=== PATIENT | female | born 1965 | race Hispanic/Latino ===

== ENCOUNTER 2017-06-07 21:53 | Emergency (ER) | payer OTHER ==
[~2017-06-07] VITALS: Ht 157.5 cm; Wt 67.6 kg
[~2017-06-07 21:53] MED LIST: AMLODIPINE BESYL5 MG PO; CIPRO500 MG PO; CIPROFLOXACIN; COLESTID1 G PO; CRESTOR10 MG PO; DOXYCYCLINE HY100 MG PO; HYDROCHLOROTHIA25 MG PO; INDOMETHACIN75 MG PO; LEVEMIR100 UNIT/1 SC; LEVEMIR100 UNIT/1 SQ; LEVOXYL50 MCG PO; LISINOPRIL10 MG PO; LYRICA50 MG PO; NORTRIPTYLINE H10 MG PO; NOVOLOG100 UNITS1; NOVOLOG100 UNITS1 SC; OXYCODONE-ACET1 EAC1 PO; OXYCONTIN10 MG PO; PANTOPRAZOLE SO40 MG PO; PLAQUENIL200 MG PO; PROMETHAZINE HC25 M1 PO; REGLAN10 MG PO; VANCOMYCIN1 GM/250 M IV; Z.0.AMLODIPINE BESYL PO; Z.0.LANTUS100 UNIT/1 SC; Z.0.LISINOPRIL10 MG PO; ZETIA10 MG PO
[2017-06-07] MEDS ORDERED: INSULIN REGULAR, HUMAN 100 UNIT/1 ML 3ML VIAL SQ ONE (22:00)
[2017-06-07] MEDS ORDERED: PANTOPRAZOLE 40 MG 10ML VIAL IV STA (22:00)
[2017-06-07] MEDS ORDERED: SODIUM CHLORIDE 0.9% 1000ML 1,000 ML IV ONE (22:00)
[2017-06-07] MEDS ORDERED: NORCO 5-325 TA1 EACH PO (22:06)
[2017-06-07 22:53] LABS: BASOPHILS % 0.5 % (0.0-1.0); HEMATOCRIT 36.1 % (34.2-44.1); HEMOGLOBIN 13.3 g/dL (12.0-16.0); LYMPHOCYTES # (AUTO) 2.6 (1.0-3.2); LYMPHOCYTES % 33.7 % (18.0-39.1); MEAN CORPUSCULAR HEMOGLOBIN 29.4 pg (28-32); MEAN CORPUSCULAR HGB CONC 36.8 g/dL (31-35); MEAN CORPUSCULAR VOLUME 79.9 fL (81-99); MONOCYTES # (AUTO) 0.4 (0.2-0.8); MONOCYTES % 4.6 % (4.4-11.3); NEUTROPHILS # (AUTO) 4.7 (2.1-6.9); NEUTROPHILS % 60.9 % (38.7-80.0); PLATELET COUNT 275 x10e3/uL (140-360); RED BLOOD COUNT 4.52 x10e6/uL (3.6-5.1); RED CELL DISTRIBUTION WIDTH 11.5 % (11.7-14.4)
[2017-06-07 23:09] LABS: ALANINE AMINOTRANSFERASE 10 IU/L (0-55); ALBUMIN/GLOBULIN RATIO 1.1 (0.8-2.0); ALKALINE PHOSPHATASE 46 IU/L (40-150); AMYLASE 33 U/L (25-125); ANION GAP 17.5 mmol/L (8-16); BLOOD UREA NITROGEN 12 mg/dL (7-26); BUN/CREATININE RATIO 14 (6-25); CALCIUM 9.3 mg/dL (8.4-10.2); CARBON DIOXIDE 25 mmol/L (22-29); CHLORIDE 99 mmol/L (98-107); CREATINE KINASE 49 IU/L (29-168); CREATININE, SERUM 0.88 mg/dL (0.57-1.11); EST GLOMERULAR FILTRATION RATE > 60 ML/MIN (60-); LIPASE 45 U/L (8-78); POTASSIUM 3.5 mmol/L (3.5-5.1); SODIUM 138 mmol/L (136-145)
[2017-06-07 23:16] LABS: TROPONIN I < 0.001 ng/mL (0-0.300)
[2017-06-07 23:17] LABS: GLUCOSE 468 mg/dL (74-118)
[2017-06-07 23:31] LABS: AMPHETAMINES SCREEN,URINE NEGATIVE (NEGATIVE); BENZODIAZEPINES SCREEN,URINE NEGATIVE (NEGATIVE); PHENCYCLIDINE SCREEN,URINE NEGATIVE (NEGATIVE)
[2017-06-07 23:32] LABS: BILIRUBIN,URINE NEGATIVE (NEGATIVE); CLARITY,URINE CLEAR (CLEAR); COLOR,URINE YELLOW (YELLOW); KETONES,URINE NEGATIVE (NEGATIVE); LEUKOCYTE ESTERASE ,URINE NEGATIVE (NEGATIVE); NITRITE,URINE NEGATIVE (NEGATIVE); PROTEIN,URINE DIPSTICK NEGATIVE (NEGATIVE); URINE UROBILINOGEN 0.2 mg/dL (0.2 - 1)
[2017-06-07 23:51] LABS: BACTERIA,URINE FEW /HPF; RBC,URINE 0-5 /HPF (0-5)
[2017-06-07 23:52] LABS: EPITHELIAL CELLS,URINE FEW /LPF
[2017-06-08 00:20] VITALS: BP 164/95
[2017-06-08] MEDS ORDERED: PANTOPRAZOLE SO40 MG PO (00:20)
== END 2017-06-08 00:33 | disposition home or self-care (01) ==
LOC: ER 21:53
DX: K29.70 Gastritis, unspecified, without bleeding (principal); E10.65 Type 1 diabetes mellitus with hyperglycemia; Z79.4 Long term (current) use of insulin; I10 Essential (primary) hypertension; E10.42 Type 1 diabetes mellitus with diabetic polyneuropathy; M32.9 Systemic lupus erythematosus, unspecified
CPT/HCPCS: 36415; 80053; 80307; 81001; 82150; 82550; 82553; 82948; 83690; 84484; 85025; 87086; 93005; 99284; J7030

== ENCOUNTER 2018-02-17 16:34 | Emergency (ER) | payer OTHER ==
[~2018-02-17] VITALS: Ht 162.6 cm; Wt 60.8 kg
[~2018-02-17 16:34] MED LIST changes: +NORCO 5-325 TA1 EACH PO
[2018-02-17 17:35] LABS: BASOPHILS % 0.8 % (0.0-1.0); HEMATOCRIT 38.9 % (34.2-44.1); HEMOGLOBIN 14.1 g/dL (12.0-16.0); LYMPHOCYTES # (AUTO) 2.8 (1.0-3.2); LYMPHOCYTES % 52.7 % (18.0-39.1); MEAN CORPUSCULAR HEMOGLOBIN 29.8 pg (28-32); MEAN CORPUSCULAR HGB CONC 36.2 g/dL (31-35); MEAN CORPUSCULAR VOLUME 82.2 fL (81-99); MONOCYTES # (AUTO) 0.3 (0.2-0.8); NEUTROPHILS # (AUTO) 2.1 (2.1-6.9); NEUTROPHILS % 40.3 % (38.7-80.0); PLATELET COUNT 261 x10e3/uL (140-360); RED BLOOD COUNT 4.73 x10e6/uL (3.6-5.1); RED CELL DISTRIBUTION WIDTH 11.8 % (11.7-14.4)
[2018-02-17 17:39] LABS: BILIRUBIN,URINE NEGATIVE (NEGATIVE); CLARITY,URINE CLEAR (CLEAR); COLOR,URINE YELLOW (YELLOW); KETONES,URINE NEGATIVE (NEGATIVE); LEUKOCYTE ESTERASE ,URINE NEGATIVE (NEGATIVE); NITRITE,URINE NEGATIVE (NEGATIVE); PREGNANCY TEST, URINE NEGATIVE (NEGATIVE); PROTEIN,URINE DIPSTICK NEGATIVE (NEGATIVE); URINE UROBILINOGEN 0.2 mg/dL (0.2 - 1)
[2018-02-17 17:49] LABS: ALBUMIN/GLOBULIN RATIO 1.1 (0.8-2.0); ANION GAP 17.7 mmol/L (8-16); CALCIUM 9.1 mg/dL (8.4-10.2); POTASSIUM 3.7 mmol/L (3.5-5.1)
[2018-02-17 17:49] LABS: EPITHELIAL CELLS,URINE FEW /LPF
[2018-02-17] MEDS ORDERED: SODIUM CHLORIDE 0.9% 1000ML 1,000 ML IV STA (18:23)
[2018-02-17] MEDS ORDERED: SODIUM CHLORIDE 0.9% 1000ML 1,000 ML IV SCH (18:30)
[2018-02-17 19:01] LABS: AMYLASE 33 U/L (25-125); LIPASE 35 U/L (8-78)
[2018-02-17] MEDS ORDERED: INSULIN REGULAR, HUMAN 100 UNIT/1 ML 3ML VIAL IV ONE (19:15)
[2018-02-17] MEDS ORDERED: INSULIN REGULAR, HUMAN 100 UNIT/1 ML 3ML VIAL SQ ONE ×2 (19:15)
[2018-02-17] MEDS ORDERED: INSULIN REGULAR, HUMAN 100 UNIT/1 ML 3ML VIAL SQ SCH (19:45)
[2018-02-17 21:15] VITALS: BP 142/92
== END 2018-02-17 21:17 | disposition home or self-care (01) ==
LOC: ER 16:40
DX: E11.65 Type 2 diabetes mellitus with hyperglycemia (principal); I10 Essential (primary) hypertension; K04.7 Periapical abscess without sinus; M06.9 Rheumatoid arthritis, unspecified; G89.29 Other chronic pain
CPT/HCPCS: 36415; 80053; 81001; 81025; 82150; 83690; 85025; 93005; 99284

== ENCOUNTER 2019-02-07 19:15 | Emergency (ER) | payer BC, OTHER ==
[~2019-02-07] VITALS: Ht 162.6 cm; Wt 67.6 kg
[~2019-02-07 19:15] MED LIST changes: +CRESTOR20 MG PO; +MORPHINE SULFAT15 M1 PO; +NOVOLIN R100 UNIT/1 SC
--- OUTSIDE RECORDS SUMMARY | 2019-02-07 19:19 | XMS REPORT | Clinical Summary ---
Author Author [facility] Organization [facility] Address Unknown Phone Unavailable Care Team Providers Care Stone Rigger Name Role Phone Domenico Maynard MD PCP Allergies Comments Active Allergy Reactions Severity Noted Date Iodine 08/26/2016 Latex Swelling 06/30/2016 Medications End Date Status Medication Sig Dispensed Refills Start Date Active pregabalin (LYRICA) 100 Take 100 mg 0 MG capsule by mouth every 8 (eight) hours. Active oxyCODone-acetaminophen TK 1 T PO Q 4 0 (PERCOCET) 10-325 mg per H PRN P 7 tablet Active lisinopril Take 40 mg by 0 (PRINIVIL,ZESTRIL) 40 mg mouth daily. tablet Active Problems Problem Noted Date Hyperglycemia 06/30/2016 Diabetes 06/30/2016 Gastroparesis 06/30/2016 Lupus 06/30/2016 Social History Date Tobacco Use Types Packs/Day Years Used Never Smoker Drinks/Week oz/Week Comments Alcohol Use No Sex Assigned at Date Recorded Not on file Industry Job Start Date Occupation Not on file Not on file Not on file Travel End Travel History Travel Start No recent travel history available. Last Filed Vital Signs Not on file Plan of Treatment Health Maintenance Due Date Last Done Comments DIABETIC RETINAL EYE EXAM 1967 DIABETIC FOOT EXAM 1977 URINE MICROALBUMIN 1977 CERVICAL CANCER SCREENING 1988 BREAST CANCER SCREENING 2017 COLONOSCOPY SCREENING 2017 SHINGLES VACCINES (#1) 2017 INFLUENZA VACCINE 12/24/2018 Results Not on fileafter 02/06/2018 Insurance Type Payer Benefit Subscriber ID Effective Phone Address Plan / Dates Group HMO CIGNA CIGNA OPEN xxxxxxxxx 2017-P ACCESS/NET resent WORK Advance Directives For more information, please contact: [phone] Patient Optometric Technologist Explanation Type Date Recorded Advance Directives, Living Will and Medical Power of Stock Grader
--- OUTSIDE RECORDS SUMMARY | 2019-02-07 19:19 | XMS REPORT | Clinical Summary ---
Author Author [facility] Address Unknown Phone Unavailable Care Team Providers Care Rn Correctional Name Role Phone Marcelle Rivers MD PCP Unavailable Allergies Comments Active Allergy Reactions Severity Noted Date Latex Swelling 02/13/2015 Medications End Date Status Medication Sig Dispensed Refills Start Date Active atorvastatin (LIPITOR) 20 Take 20 mg by 0 MG tablet mouth. Active amlodipine-valsartan Take 1 tablet 0 (EXFORGE) 5-320 mg per by mouth. tablet Active levothyroxine (SYNTHROID, Take 25 mcg 0 LEVOTHROID) 25 MCG tablet by mouth. 5 Active insulin aspart (NOVOLOG) Inject 20 0 100 unit/mL injection units three 5 times a day before meals.. Active CONTOUR TEST STRIPS Strp 0 5 Active insulin detemir (LEVEMIR) Inject 55 10 mL 0 100 unit/mL injection Units 5 subcutaneousl y 2 (two) times daily Inject 45 units in the mornings and 50 units at bedtime. Active Problems Problem Noted Date Gastroparesis due to DM 02/15/2015 Diabetic ketoacidosis without coma associated with diabetes mellitus due to 02/13/2015 underlying condition Social History Date Tobacco Use Types Packs/Day Years Used Never Smoker Alcohol Use Drinks/Week oz/Week Comments No Sex Assigned at Date Recorded Not on file Industry Job Start Date Occupation Not on file Not on file Not on file Travel End Travel History Travel Start No recent travel history available. Last Filed Vital Signs Not on file Plan of Treatment Not on file Results Not on fileafter 02/06/2018 Insurance Payer Benefit Subscriber ID Type Phone Address Plan / Group HUMANA - [employer] CARE HUMANA HMO xxxxxxxxx HMO/POS POS Advance Directives For more information, please contact: [id number] [place] [address] Date Inactivated Comments Code Status Date Activated 02/15/2015 4:36 PM Full Code 02/13/2015 3:42 PM This code status was determined by: Patient
--- OUTSIDE RECORDS SUMMARY | 2019-02-07 19:19 | XMS REPORT | Continuity of Care Document ---
Author Author [employer] Organization [employer] Address Unknown Phone Unavailable Care Team Providers Care Host Name Role Phone [employer] Information [employer] Unavailable Unavailable Problems Problem Status Onset Date Classification Date Reported Comments Source Postoperative cellulitis of surgical wound Active 04/02/2014 Problem 08/28/2018 [facility] Ingrown toenail Active Problem 04/10/2018 [facility] Medications Medication Details Route Status Patient Instructions Ordering Provider Order Date Source Ceftin 1 tablet Orally Active 500 MG Orally every 12 hrs Rob 04/08/2018 [facility] Ezetimibe (Zetia) 10 Mg Tablet, 10 Mg Oral Daily Active 06/07/2017 [facility] Hydrochlorothiazide 25 Mg Tablet, 25 Mg Oral Daily Active 06/07/2017 [facility] Nortriptyline Hcl 10 Mg Cap, 2 Cap Oral Bedtime Active 06/07/2017 [facility] Oxycodone Hcl (Oxycontin) 10 Mg Tab.er.12h, 1 Tab Oral Every 4 Hours for Neck Pain Active 06/07/2017 [facility] Oxycodone Hcl/Acetaminophen (Oxycodone-Acetaminophen 5-325) 1 Each Tablet, 10 Each Oral Active 06/07/2017 [facility] Rosuvastatin Calcium (Crestor) 10 Mg Tab, 40 Mg Oral Daily Active 06/07/2017 [facility] Hydrochlorothiazide 25 Mg Tablet, 25 Mg Oral Daily Active 06/07/2017 [facility] Nortriptyline Hcl 10 Mg Cap, 2 Cap Oral Bedtime Active 06/07/2017 [facility] Oxycodone Hcl/Acetaminophen (Oxycodone-Acetaminophen 5-325) 1 Each Tablet, 10 Each Oral Active 06/07/2017 [facility] Rosuvastatin Calcium (Crestor) 10 Mg Tab, 40 Mg Oral Daily Active 06/07/2017 [facility] Insulin Detemir (Levemir) 100 Unit/1 Ml Vial, 50 Units Sub-Q Before Breakfast Active 01/11/2016 [facility] Pregabalin (Lyrica) 50 Mg Cap, 100 Mg Oral Three Times A Day Active 01/11/2016 [facility] Insulin Detemir (Levemir) 100 Unit/1 Ml Vial, 50 Units Sub-Q Before Breakfast Active 01/11/2016 [facility] Pregabalin (Lyrica) 50 Mg Cap, 100 Mg Oral Three Times A Day Active 01/11/2016 [facility] Amlodipine Besylate 5 Mg Tablet, 5 Mg Oral Daily Active 04/02/2014 [facility] Levothyroxine Sodium (Levoxyl) 50 Mcg Tablet, 50 Mcg Oral Daily Active 08/17/2013 [facility] Insulin Aspart (Novolog) 100 Units/1 Ml Inj, Active 06/23/2013 [facility] Insulin Glargine,Hum.rec.anlog (Lantus) 100 Unit/1 Ml Vial, 50 Units Subcutaneously Bedtime Active 06/23/2013 [facility] Ciprofloxacin , Active 05/02/2011 [facility] Hydrocodone Bit/Acetaminophen ([place] 5-325 Tablet) 1 Each Tablet Three Times A Day for Pain Active [facility] Insulin Detemir (Levemir) 100 Unit/1 Ml Vial Before Supper Active [facility] Insulin Regular, Human (Novolin R) 100 Unit/1 Ml Vial Before Meals And At Bedtime Active [facility] Lisinopril 10 Mg Tablet Daily Active [facility] Morphine Sulfate (Morphine Sulfate Er) 15 Mg Tablet.er Twice A Day for Pain Active [facility] Pantoprazole Sodium (Protonix) 40 Mg Tablet.dr Daily Active [facility] Rosuvastatin Calcium (Crestor) 20 Mg Tablet Daily Active [facility] Hydrocodone Bit/Acetaminophen ([place] 5-325 Tablet) 1 Each Tablet Three Times A Day for Pain Active [facility] Insulin Detemir (Levemir) 100 Unit/1 Ml Vial Before Supper Active [facility] Lisinopril 10 Mg Tablet Daily Active [facility] Pantoprazole Sodium (Protonix) 40 Mg Tablet.dr Lindo Active [facility] Allergies, Adverse Reactions, Alerts Substance Category Reaction Severity Reaction type Status Date Reported Comments Source IV CONTRAST hives Intermediate Propensity to adverse reactions Active 06/16/2013 [facility] SEAFOOD SWELLING/WELPS Severe Allergy to Substance Active 04/02/2014 [facility] iodine IV IODINE, HIVES Unknown Allergy to Substance Active 08/28/2018 [facility] Iodinated Contrast- Oral and IV Dye HIVES Intermediate Allergy to Substance Active 08/28/2018 [facility] Latex RASH Unknown Allergy to Substance Active 08/28/2018 [facility] shellfish derived SWELLING Severe Allergy to Substance Active 08/28/2018 [facility] Immunizations No Data Provided for This Section Results Order Name Results Value Reference Range Date Interpretation Comments Source Capillary blood glucose measurement by glucometer (mass/volume) 205 70 - 120 08/28/2018 [facility] Lactic Acid Level 13.1 4.5 - 19.8 08/28/2018 [facility] Blood leukocytes automated count (number/volume) 5.55 4.8 - 10.8 08/28/2018 [facility] Blood erythrocytes automated count (number/volume) 4.42 3.6 - 5.1 08/28/2018 [facility] Blood hemoglobin measurement (moles/volume) 13.0 12.0 - 16.0 08/28/2018 [facility] Automated blood hematocrit (volume fraction) 36.4 34.2 - 44.1 08/28/2018 [facility] Automated erythrocyte mean corpuscular volume 82.4 81 - 99 08/28/2018 [facility] Automated erythrocyte mean corpuscular hemoglobin (mass per erythrocyte) 29.4 28 - 32 08/28/2018 [facility] Automated erythrocyte mean corpuscular hemoglobin concentration measurement (mass/volume) 35.7 31 - 35 08/28/2018 [facility] RDW BldCo-Rto 12.1 11.7 - 14.4 08/28/2018 [facility] Automated blood platelet count (count/volume) 262 140 - 360 08/28/2018 [facility] Automated blood segmented neutrophil count as percentage of total leukocytes 43.8 38.7 - 80.0 08/28/2018 [facility] Automated blood lymphocyte count as percentage ot total leukocytes 47.4 18.0 - 39.1 08/28/2018 [facility] Automated blood monocyte count as percentage of total leukocytes 5.6 4.4 - 11.3 08/28/2018 [facility] Automated blood eosinophil count as percentage of total leukocytes 2.3 0.0 - 6.0 08/28/2018 [facility] Automated blood basophil count as percentage of total leukocytes 0.4 0.0 - 1.0 08/28/2018 [facility] IM GRANULOCYTES % 0.5 0.0 - 1.0 08/28/2018 [facility] Automated blood neutrophil count 2.4 2.1 - 6.9 08/28/2018 [facility] Blood lymphocytes count (number/volume) 2.6 1.0 - 3.2 08/28/2018 [facility] Blood monocytes automated count (number/volume) 0.3 0.2 - 0.8 08/28/2018 [facility] Automated blood eosinophil count 0.1 0.0 - 0.4 08/28/2018 [facility] Automated blood basophil count (count/volume) 0.0 0.0 - 0.1 08/28/2018 [facility] Absolute Immature Granulocyte (auto 0.03 0 - 0.1 08/28/2018 [facility] Prothrombin time (PT) in platelet poor plasma by coagulation assay 12.4 11.9 - 14.5 08/28/2018 [facility] INR in Platelet poor plasma by Coagulation assay 0.88 08/28/2018 [facility] Activated partial thromboplastin time (aPTT) in platelet poor plasma bycoagulation assay 28.3 23.8 - 35.5 08/28/2018 [facility] Urine color determination YELLOW YELLOW 08/28/2018 [facility] Urine clarity SL CLOUDY CLEAR 08/28/2018 [facility] Specific gravity of Urine by Test strip 1.010 1.010 - 1.025 08/28/2018 [facility] Urine pH measurement by automated test strip 6 5 - 7 08/28/2018 [facility] Urine leukocyte esterase detection by dipstick NEGATIVE NEGATIVE 08/28/2018 [facility] Urine nitrite detection NEGATIVE NEGATIVE 08/28/2018 [facility] Urine protein measurement by test strip (mass/volume) NEGATIVE NEGATIVE 08/28/2018 [facility] Urine glucose detection 3+ NEGATIVE 08/28/2018 [facility] Urine ketones detection by automated test strip NEGATIVE NEGATIVE 08/28/2018 [facility] Urine urobilinogen measurement by test strip (mass/volume) 0.2 0.2 - 1 08/28/2018 [facility] Urine total bilirubin measurement (mass/volume) NEGATIVE NEGATIVE 08/28/2018 [facility] Urine erythrocytes detection NEGATIVE NEGATIVE 08/28/2018 [facility] Automated urine sediment leukocyte count by microscopy (number/high power field) NONE 0 - 5 08/28/2018 [facility] Erythrocytes detection in urine sediment by light microscopy NONE 0 - 5 08/28/2018 [facility] Bacteria detection in urine sediment by light microscopy NONE NONE 08/28/2018 [facility] Epithelial cells detection in urine sediment by light microscopy RARE NONE 08/28/2018 [facility] Serum or plasma sodium measurement (moles/volume) 133 136 - 145 08/28/2018 [facility] Serum or plasma potassium measurement (moles/volume) 3.7 3.5 - 5.1 08/28/2018 [facility] Serum or plasma chloride measurement (moles/volume) 97 98 - 107 08/28/2018 [facility] Serum or plasma carbon dioxide, total measurement (moles/volume) 25 22 - 29 08/28/2018 [facility] Serum or plasma anion gap 14.7 8 - 16 08/28/2018 [facility] Serum or plasma urea nitrogen measurement (mass/volume) 11 7 - 26 08/28/2018 [facility] Serum or plasma creatinine measurement (mass/volume) 0.85 0.57 - 1.11 08/28/2018 [facility] Serum or plasma urea nitrogen/creatinine mass ratio 13 6 - 25 08/28/2018 [facility] Estimated glomerular filtration rate (GFR) determination > 60 60 08/28/2018 [facility] Glucose measurement 470 74 - 118 08/28/2018 [facility] Serum or plasma calcium measurement (mass/volume) 9.3 8.4 - 10.2 08/28/2018 [facility] Serum or plasma magnesium measurement (mass/volume) 1.3 1.3 - 2.1 08/28/2018 [facility] Serum or plasma total bilirubin measurement (mass/volume) 0.4 0.2 - 1.2 08/28/2018 [facility] Aspartate Amino Transf (AST/SGOT) 12 5 - 34 08/28/2018 [facility] Serum or plasma alanine aminotransferase measurement (enzymatic activity/volume) 9 0 - 55 08/28/2018 [facility] Serum or plasma protein measurement (mass/volume) 7.5 6.5 - 8.1 08/28/2018 [facility] Serum or plasma albumin measurement (mass/volume) 3.7 3.5 - 5.0 08/28/2018 [facility] Plasma globulin measurement (mass/volume) 3.8 2.3 - 3.5 08/28/2018 [facility] Serum or plasma albumin/globulin mass ratio 1.0 0.8 - 2.0 08/28/2018 [facility] Serum or plasma alkaline phosphatase measurement (enzymatic activity/volume) 56 40 - 150 08/28/2018 [facility] Serum or plasma creatine kinase measurement (enzymatic activity/volume) 57 29 - 168 08/28/2018 [facility] Serum or plasma creatine kinase MB measurement (mass/volume) 1.40 0 - 5.0 08/28/2018 [facility] Troponin I measurement by highly sensitive enzyme immunoassay 0.005 0 - 0.300 08/28/2018 [facility] Serum or plasma amylase measurement (enzymatic activity/volume) 28 25 - 125 08/28/2018 [facility] Serum or plasma lipase measurement (enzymatic activity/volume) 22 8 - 78 08/28/2018 [facility] Automated blood basophil count (count/volume) Automated blood basophil count (count/volume) 0.0 0.0 - 0.1 02/17/2018 [facility] Automated blood basophil count as percentage of total leukocytes Automated blood basophil count as percentage of total leukocytes 0.8 0.0 - 1.0 02/17/2018 [facility] Automated blood eosinophil count Automated blood eosinophil count 0.0 0.0 - 0.4 02/17/2018 [facility] Automated blood eosinophil count as percentage of total leukocytes Automated blood eosinophil count as percentage of total leukocytes 0.0 0.0 - 6.0 02/17/2018 [facility] Automated blood hematocrit (volume fraction) Automated blood hematocrit (volume fraction) 38.9 34.2 - 44.1 02/17/2018 [facility] Automated blood lymphocyte count as percentage ot total leukocytes Automated blood lymphocyte count as percentage ot total leukocytes 52.7 18.0 - 39.1 02/17/2018 [facility] Automated blood monocyte count as percentage of total leukocytes Automated blood monocyte count as percentage of total leukocytes 6.0 4.4 - 11.3 02/17/2018 [facility] Automated blood neutrophil count Automated blood neutrophil count 2.1 2.1 - 6.9 02/17/2018 [facility] Automated blood platelet count (count/volume) Automated blood platelet count (count/volume) 261 140 - 360 02/17/2018 [facility] Automated blood segmented neutrophil count as percentage of total leukocytes Automated blood segmented neutrophil count as percentage of total leukocytes 40.3 38.7 - 80.0 02/17/2018 [facility] Automated erythrocyte mean corpuscular hemoglobin (mass per erythrocyte) Automated erythrocyte mean corpuscular hemoglobin (mass per erythrocyte) 29.8 28 - 32 02/17/2018 [facility] Automated erythrocyte mean corpuscular hemoglobin concentration measurement (mass/volume) Automated erythrocyte mean corpuscular hemoglobin concentration measurement (mass/volume) 36.2 31 - 35 02/17/2018 [facility] Automated erythrocyte mean corpuscular volume Automated erythrocyte mean corpuscular volume 82.2 81 - 99 02/17/2018 [facility] Blood erythrocytes automated count (number/volume) Blood erythrocytes automated count (number/volume) 4.73 3.6 - 5.1 02/17/2018 [facility] Blood hemoglobin measurement (moles/volume) Blood hemoglobin measurement (moles/volume) 14.1 12.0 - 16.0 02/17/2018 [facility] Blood leukocytes automated count (number/volume) Blood leukocytes automated count (number/volume) 5.31 4.8 - 10.8 02/17/2018 [facility] Blood lymphocytes count (number/volume) Blood lymphocytes count (number/volume) 2.8 1.0 - 3.2 02/17/2018 [facility] Blood monocytes automated count (number/volume) Blood monocytes automated count (number/volume) 0.3 0.2 - 0.8 02/17/2018 [facility] Estimated glomerular filtration rate (GFR) determination Estimated glomerular filtration rate (GFR) determination 59 60 02/17/2018 [facility] Glucose measurement Glucose measurement 571 74 - 118 02/17/2018 [facility] Plasma globulin measurement (mass/volume) Plasma globulin measurement (mass/volume) 3.7 2.3 - 3.5 02/17/2018 [facility] Serum or plasma alanine aminotransferase measurement (enzymatic activity/volume) Serum or plasma alanine aminotransferase measurement (enzymatic activity/volume) 19 0 - 55 02/17/2018 [facility] Serum or plasma albumin measurement (mass/volume) Serum or plasma albumin measurement (mass/volume) 4.0 3.5 - 5.0 02/17/2018 [facility] Serum or plasma albumin/globulin mass ratio Serum or plasma albumin/globulin mass ratio 1.1 0.8 - 2.0 02/17/2018 [facility] Serum or plasma alkaline phosphatase measurement (enzymatic activity/volume) Serum or plasma alkaline phosphatase measurement (enzymatic activity/volume) 57 40 - 150 02/17/2018 [facility] Serum or plasma amylase measurement (enzymatic activity/volume) Serum or plasma amylase measurement (enzymatic activity/volume) 33 25 - 125 02/17/2018 [facility] Serum or plasma anion gap Serum or plasma anion gap 17.7 8 - 16 02/17/2018 [facility] Serum or plasma calcium measurement (mass/volume) Serum or plasma calcium measurement (mass/volume) 9.1 8.4 - 10.2 02/17/2018 [facility] Serum or plasma carbon dioxide, total measurement (moles/volume) Serum or plasma carbon dioxide, total measurement (moles/volume) 27 22 - 29 02/17/2018 [facility] Serum or plasma chloride measurement (moles/volume) Serum or plasma chloride measurement (moles/volume) 94 98 - 107 02/17/2018 [facility] Serum or plasma creatinine measurement (mass/volume) Serum or plasma creatinine measurement (mass/volume) 1.00 0.57 - 1.11 02/17/2018 [facility] Serum or plasma lipase measurement (enzymatic activity/volume) Serum or plasma lipase measurement (enzymatic activity/volume) 35 8 - 78 02/17/2018 [facility] Serum or plasma potassium measurement (moles/volume) Serum or plasma potassium measurement (moles/volume) 3.7 3.5 - 5.1 02/17/2018 [facility] Serum or plasma protein measurement (mass/volume) Serum or plasma protein measurement (mass/volume) 7.7 6.5 - 8.1 02/17/2018 [facility] Serum or plasma sodium measurement (moles/volume) Serum or plasma sodium measurement (moles/volume) 135 136 - 145 02/17/2018 [facility] Serum or plasma total bilirubin measurement (mass/volume) Serum or plasma total bilirubin measurement (mass/volume) 0.7 0.2 - 1.2 02/17/2018 [facility] Serum or plasma urea nitrogen measurement (mass/volume) Serum or plasma urea nitrogen measurement (mass/volume) 6 7 - 26 02/17/2018 [facility] Serum or plasma urea nitrogen/creatinine mass ratio Serum or plasma urea nitrogen/creatinine mass ratio 6 6 - 25 02/17/2018 [facility] Red Cell Distribution Width 11.8 11.7 - 14.4 02/17/2018 [facility] IM GRANULOCYTES % 0.2 0.0 - 1.0 02/17/2018 [facility] Absolute Immature Granulocyte (auto 0.01 0 - 0.1 02/17/2018 [facility] Aspartate Amino Transf (AST/SGOT) 20 5 - 34 02/17/2018 [facility] Urine human chorionic gonadotropin (hCG) detection NEGATIVE NEGATIVE 02/17/2018 [facility] Automated urine sediment leukocyte count by microscopy (number/high power field) Automated urine sediment leukocyte count by microscopy (number/high power field) NONE 0 - 5 02/17/2018 [facility] Bacteria detection in urine sediment by light microscopy Bacteria detection in urine sediment by light microscopy NONE NONE 02/17/2018 [facility] Epithelial cells detection in urine sediment by light microscopy Epithelial cells detection in urine sediment by light microscopy FEW NONE 02/17/2018 [facility] Erythrocytes detection in urine sediment by light microscopy Erythrocytes detection in urine sediment by light microscopy NONE 0 - 5 02/17/2018 [facility] Specific gravity of Urine by Test strip Specific gravity of Urine by Test strip 1.005 1.010 - 1.025 02/17/2018 [facility] Urine clarity Urine clarity CLEAR CLEAR 02/17/2018 [facility] Urine color determination Urine color determination YELLOW YELLOW 02/17/2018 [facility] Urine erythrocytes detection Urine erythrocytes detection NEGATIVE NEGATIVE 02/17/2018 [facility] Urine glucose detection Urine glucose detection 3+ NEGATIVE 02/17/2018 [facility] Urine human chorionic gonadotropin (hCG) detection Urine human chorionic gonadotropin (hCG) detection NEGATIVE NEGATIVE 02/17/2018 [facility] Urine ketones detection by automated test strip Urine ketones detection by automated test strip NEGATIVE NEGATIVE 02/17/2018 [facility] Urine leukocyte esterase detection by dipstick Urine leukocyte esterase detection by dipstick NEGATIVE NEGATIVE 02/17/2018 [facility] Urine nitrite detection Urine nitrite detection NEGATIVE NEGATIVE 02/17/2018 [facility] Urine pH measurement by automated test strip Urine pH measurement by automated test strip 6 5 - 7 02/17/2018 [facility] Urine protein measurement by test strip (mass/volume) Urine protein measurement by test strip (mass/volume) NEGATIVE NEGATIVE 02/17/2018 [facility] Urine total bilirubin measurement (mass/volume) Urine total bilirubin measurement (mass/volume) NEGATIVE NEGATIVE 02/17/2018 [facility] Urine urobilinogen measurement by test strip (mass/volume) Urine urobilinogen measurement by test strip (mass/volume) 0.2 0.2 - 1 02/17/2018 [facility] Capillary blood glucose measurement by glucometer (mass/volume) Capillary blood glucose measurement by glucometer (mass/volume) 279 70 - 120 06/07/2017 [facility] Serum or plasma creatine kinase MB measurement (mass/volume) Serum or plasma creatine kinase MB measurement (mass/volume) 0.50 0.00 - 5.00 06/07/2017 [facility] Serum or plasma creatine kinase measurement (enzymatic activity/volume) Serum or plasma creatine kinase measurement (enzymatic activity/volume) 49 29 - 168 06/07/2017 [facility] Troponin I measurement by highly sensitive enzyme immunoassay Troponin I measurement by highly sensitive enzyme immunoassay <0.001 0 - 0.300 06/07/2017 [facility] Barbiturates screen, urine Barbiturates screen, urine NEGATIVE NEGATIVE 06/07/2017 [facility] Urine amphetamines detection by screen method > 1000 ng/mL Urine amphetamines detection by screen method > 1000 ng/mL NEGATIVE NEGATIVE 06/07/2017 [facility] Urine benzodiazepines detection by screening method Urine benzodiazepines detection by screening method NEGATIVE NEGATIVE 06/07/2017 [facility] Urine cannabinoids detection by screening method Urine cannabinoids detection by screening method NEGATIVE NEGATIVE 06/07/2017 [facility] Urine opiates screening test Urine opiates screening test POSITIVE NEGATIVE 06/07/2017 [facility] Urine phencyclidine detection by screening method Urine phencyclidine detection by screening method NEGATIVE NEGATIVE 06/07/2017 [facility] Urine Cocaine Screen NEGATIVE NEGATIVE 06/07/2017 [facility] Pathology Reports No Data Provided for This Section Diagnostic Reports No Data Provided for This Section Consultation Notes No Data Provided for This Section Discharge Summaries No Data Provided for This Section History and Physicals No Data Provided for This Section Vital Signs No Data Provided for This Section Encounters Location Location Details Encounter Type Encounter Number Reason For Visit Attending Provider ADM Date DC Date Status Source Departed Emergency Room [id number] RAYMOND LANIER MD 06/07/2017 06/08/2017 [facility] Departed Emergency Room [id number] DAMARIS WALTON MD 02/17/2018 02/17/2018 [facility] Departed Emergency Room [id number] KECIA MARIE MD 08/28/2018 08/28/2018 [facility] Procedures Procedure Code Date Perfomer Comments Source CT of abdomen and pelvis without contrast [id number] 08/28/2018 [facility] Assessment and Plan No Data Provided for This Section Plan of Care Plan of Care Date Source Discharge Date 08/28/18 3:45pm Disposition HOME, SELF-CARE Condition at Discharge Stable Instructions/Education Provided Dehydration - Adult Hyperglycemia Forms Provided Work/School Excuse Prescriptions See Medication Section Referrals [facility] Address: [address] [place] [address] Additional Instructions/Education follow up with pcp take meds as directed by pcp 08/28/2018 [facility] Discharge Date 02/17/18 9:17pm Disposition HOME, SELF-CARE Condition at Discharge Stable Instructions/Education Provided Hypertension Hyperglycemia Forms Provided Work/School Excuse Prescriptions See Medication Section Referrals [facility] Address: [address] [place] [address] Additional Instructions/Education FOLLOW UP WITH YOUR PRIMARY CARE DOCTOR WITHIN 2-4 DAYS TAKE MEDICATIONS PRESCRIBED, AND MONITOR YOUR BLOOD SUGAR DAILY. RETURN TO ER NEEDED, IF YOU START HAVING FEVER, WORSENING PAIN OR CHEST PAIN NEW ONSET. 02/17/2018 [facility] Social History Social History Date Source Social History Problem Response Recorded Date/Time Onset Date Status Hx Psychiatric Problems No 04/12/2014 11:20pm Not Applicable Not Applicable Hx Eating Disorder No 04/12/2014 11:20pm Not Applicable Not Applicable Hx Substance Use Disorder No 04/12/2014 11:20pm Not Applicable Not Applicable Hx Depression No 04/12/2014 11:20pm Not Applicable Not Applicable Hx Alcohol Use No 04/12/2014 11:20pm Not Applicable Not Applicable Hx Substance Use Treatment No 04/12/2014 11:20pm Not Applicable Not Applicable Hx Physical Abuse No 04/12/2014 11:20pm Not Applicable Not Applicable Smoking Status Start Date Stop Date Former smoker 08/28/2018 [facility] Family History No Data Provided for This Section Advance Directives Order Name Results Value Date Source Advance Directives Advance Directives Directive Response Recorded Date/Time Does the patient have an advance directive? No 11/18/14 11:20pm Do you have a Directive to Physician? No 08/28/18 12:13pm Do you have a Medical Power of Portfolio Assistant? No 08/28/18 12:13pm Do you have an out of hospital Do Not Resuscitate Order? No 08/28/18 12:13pm Do you have any special needs we should be aware of? No 08/28/18 12:13pm Do you have a support person here with you today? Yes 08/28/18 12:13pm Did patient receive Notice of Privacy Practices? Yes 08/28/18 12:13pm Did patient receive patient rights and responsibilities? Yes 08/28/18 12:13pm 08/28/2018 [facility] Advance Directives Advance Directives Directive Response Recorded Date/Time Does the patient have an advance directive? No 04/12/14 11:20pm If yes, is advance directive on file with [facility]? No 06/07/17 10:49pm If not on file with [facility] will patient provide a copy? No 04/03/14 12:30am 02/17/2018 [facility] Functional Status No Data Provided for This Section
[2019-02-07 20:00] LABS: BASOPHILS % 0.4 % (0.0-1.0); EOSINOPHILS # (AUTO) 0.1 (0.0-0.4); EOSINOPHILS % 1.8 % (0.0-6.0); HEMATOCRIT 34.8 % (34.2-44.1); HEMOGLOBIN 12.9 g/dL (12.0-16.0); LYMPHOCYTES % 53.1 % (18.0-39.1); MEAN CORPUSCULAR HEMOGLOBIN 29.6 pg (28-32); MEAN CORPUSCULAR HGB CONC 37.1 g/dL (31-35); MEAN CORPUSCULAR VOLUME 79.8 fL (81-99); MONOCYTES # (AUTO) 0.4 (0.2-0.8); MONOCYTES % 6.5 % (4.4-11.3); NEUTROPHILS # (AUTO) 2.2 (2.1-6.9); PLATELET COUNT 171 x10e3/uL (140-360); RED BLOOD COUNT 4.36 x10e6/uL (3.6-5.1); RED CELL DISTRIBUTION WIDTH 11.6 % (11.7-14.4)
[2019-02-07] MEDS ORDERED: FAMOTIDINE 20 MG/2 ML VIAL IV ONE (20:00)
[2019-02-07 20:17] LABS: ALBUMIN 3.8 g/dL (3.5-5.0); ANION GAP 18.8 mmol/L (8-16); CALCIUM 9.2 mg/dL (8.4-10.2); CREATININE, SERUM 1.11 mg/dL (0.57-1.11); POTASSIUM 3.8 mmol/L (3.5-5.1)
[2019-02-07 20:24] LABS: BILIRUBIN,URINE NEGATIVE (NEGATIVE); CLARITY,URINE CLEAR (CLEAR); COLOR,URINE YELLOW (YELLOW); KETONES,URINE NEGATIVE (NEGATIVE); LEUKOCYTE ESTERASE ,URINE NEGATIVE (NEGATIVE); NITRITE,URINE NEGATIVE (NEGATIVE); PROTEIN,URINE DIPSTICK NEGATIVE (NEGATIVE); URINE UROBILINOGEN 0.2 mg/dL (0.2 - 1)
[2019-02-07 20:50] LABS: BACTERIA,URINE RARE /HPF; EPITHELIAL CELLS,URINE RARE /LPF; RBC,URINE 0-5 /HPF (0-5); WBC,URINE (MAN) 0-5 /HPF (0-5)
[2019-02-07] MEDS ORDERED: KETOROLAC TROMETHAMINE 30 MG/ML VIAL IV STA (20:56)
[2019-02-07] MEDS ORDERED: SODIUM CHLORIDE 0.9% 1000ML 1,000 ML IV STA (20:56)
--- NOTE | 2019-02-07 21:32 | Diagnostic Imaging Report ---
EXAM: CT Abdomen and Pelvis WITHOUT contrast INDICATION: Abdominal pain, epigastric, left upper quadrant pain COMPARISON: Abdominal CT 08/28/2018, 08/16/2013 TECHNIQUE: Abdomen and pelvis were scanned utilizing a multidetector helical scanner from the lung base to the pubic symphysis without administration of IV contrast. Absence of intravenous contrast decreases sensitivity for detection of focal lesions and vascular pathology. Coronal and sagittal reformations were obtained. Routine protocol was performed. IV CONTRAST: None ORAL CONTRAST: None COMPLICATIONS: None RADIATION DOSE: Total DLP: 282 mGy*cm Estimated effective dose: (DLP x 0.015 x size factor) mSv CTDIvol has been reviewed. It is below the limits set by the Radiation Protocol Committee (RPC). Dose modulation, iterative reconstruction, and/or weight based adjustment of the mA/kV was utilized to reduce the radiation dose to as low as reasonably achievable. FINDINGS: LINES and TUBES: None. LOWER THORAX: Subtle coronary artery calcifications. HEPATOBILIARY: No focal hepatic lesions. There is minimal intra- and extra- hepatic biliary dilation likely post cholecystectomy resevoir effect. GALLBLADDER: There are cholecystectomy clips. SPLEEN: No splenomegaly. PANCREAS: No focal masses or ductal dilatation. ADRENALS: No adrenal nodules KIDNEYS/URETERS: No hydronephrosis. No cystic or solid mass lesions. No stones. Trace left perinephric fat stranding, unchanged compared to 08/28/2018 GI TRACT: No abnormal distention, wall thickening, or evidence of bowel obstruction. Diverticuli in the distal colon. No evidence of diverticulitis. Appendix is not identified, patient has history of appendectomy. PELVIC ORGANS/BLADDER: Hysterectomy. No adnexal masses. LYMPH NODES: No lymphadenopathy. VESSELS: Mild calcifications of the abdominal aorta and major branches.. Stable minimal right renal arterial calcifications. PERITONEUM / RETROPERITONEUM: No free air or fluid. BONES: Fixation hardware in the lower lumbar spine status post partial left L4 and left L5 and S1 laminectomies. Degenerative changes in the spine. Chronic fracture and mild angulation of posterior sacral fixation screws (series 300 images 51, 68), unchanged since 08/16/2013. Normal spine alignment. SOFT TISSUES: Unremarkable. IMPRESSION: 1. No acute abnormalities in the abdomen or pelvis on this noncontrast CT. 2. Suspect coronary artery calcific atherosclerosis. 3. Colonic diverticulosis without diverticulitis. 4. Stable spine fixation hardware as above. Signed by: Dane Mac DO on 02/07/2019 9:28 PM
[2019-02-07 22:09] LABS: PLATELET ESTIMATE ADEQUATE
[2019-02-07] MEDS ORDERED: INSULIN REGULAR, HUMAN 100 UNIT/1 ML 3ML VIAL IV ONE (22:15)
[2019-02-08 00:10] VITALS: BP 104/73
== END 2019-02-08 00:36 | disposition home or self-care (01) ==
LOC: ER 19:15
DX: R10.13 Epigastric pain (principal); R73.9 Hyperglycemia, unspecified
CPT/HCPCS: 36415; 74176; 80053; 81001; 82948; 83690; 85025; 99283; J1885; J7030

== ENCOUNTER 2020-08-06 11:26 | Observation (INO) | payer BC ==
[~2020-08-06] VITALS: Ht 157.5 cm; Wt 59.0 kg
[2020-08-06 12:07] LABS: BASOPHILS % 0.4 % (0.0-1.0); EOSINOPHILS # (AUTO) 0.2 (0.0-0.4); EOSINOPHILS % 2.5 % (0.0-6.0); HEMATOCRIT 38.9 % (34.2-44.1); HEMOGLOBIN 13.7 g/dL (12.0-16.0); LYMPHOCYTES # (AUTO) 2.1 (1.0-3.2); MEAN CORPUSCULAR HEMOGLOBIN 28.7 pg (28-32); MEAN CORPUSCULAR HGB CONC 35.2 g/dL (31-35); MEAN CORPUSCULAR VOLUME 81.6 fL (81-99); MONOCYTES # (AUTO) 0.4 (0.2-0.8); MONOCYTES % 6.1 % (4.4-11.3); NEUTROPHILS % 59.7 % (38.7-80.0); PLATELET COUNT 280 x10e3/uL (140-360); RED BLOOD COUNT 4.77 x10e6/uL (3.6-5.1)
[2020-08-06 12:11] LABS: CLARITY,URINE CLEAR (CLEAR); COLOR,URINE YELLOW (YELLOW); KETONES,URINE NEGATIVE (NEGATIVE); LEUKOCYTE ESTERASE ,URINE TRACE (NEGATIVE); NITRITE,URINE NEGATIVE (NEGATIVE); PROTEIN,URINE DIPSTICK NEGATIVE (NEGATIVE); URINE UROBILINOGEN 0.2 mg/dL (0.2 - 1)
[2020-08-06 12:13] LABS: AMPHETAMINES SCREEN,URINE NEGATIVE (NEGATIVE); BENZODIAZEPINES SCREEN,URINE NEGATIVE (NEGATIVE); PHENCYCLIDINE SCREEN,URINE NEGATIVE (NEGATIVE)
[2020-08-06 12:14] LABS: INR 0.93
[2020-08-06 12:15] LABS: PARTIAL THROMBOPLASTIN TIME 28.7 seconds (23.8-35.5)
[2020-08-06 12:21] LABS: EPITHELIAL CELLS,URINE RARE /LPF; MUCUS,URINE FEW (RARE); RBC,URINE 0-5 /HPF (0-5); WBC,URINE (MAN) 0-5 /HPF (0-5)
[2020-08-06 12:24] LABS: ALANINE AMINOTRANSFERASE 15 IU/L (0-55); ALKALINE PHOSPHATASE 52 IU/L (40-150); AMYLASE 23 U/L (25-125); ANION GAP 17.3 mmol/L (8-16); BLOOD UREA NITROGEN 10 mg/dL (7-26); BUN/CREATININE RATIO 11 (6-25); CALCIUM 8.5 mg/dL (8.4-10.2); CARBON DIOXIDE 25 mmol/L (22-29); CHLORIDE 96 mmol/L (98-107); CREATINE KINASE 45 IU/L (29-168); CREATININE, SERUM 0.95 mg/dL (0.57-1.11); EST GLOMERULAR FILTRATION RATE > 60 ML/MIN (60-); LIPASE 14 U/L (8-78); POTASSIUM 3.3 mmol/L (3.5-5.1); SODIUM 135 mmol/L (136-145)
[2020-08-06 12:27] LABS: GLUCOSE 536 mg/dL (74-118)
[2020-08-06] MEDS ORDERED: SODIUM CHLORIDE 0.9% 1000ML 1,000 ML IV SCH (12:30)
[2020-08-06] MEDS ORDERED: MAGNESIUM SULFATE 2GM/50ML 50 ML IV ONE ×2 (12:30→21:00)
[2020-08-06] MEDS ORDERED: POTASSIUM CHLORIDE 20 MEQ TAB CR PO STA (12:30)
[2020-08-06] MEDS ORDERED: INSULIN REGULAR, HUMAN 100 UNIT/1 ML 3ML VIAL IV ONE (13:00)
[2020-08-06] MEDS ORDERED: MORPHINE SULFATE INJ 4 MG/ML INJ 1ML IV STA (13:24)
[2020-08-06] MEDS ORDERED: GABAPENTIN300 MG PO (14:25)
[2020-08-06] MEDS ORDERED: LISINOPRIL40 MG PO (14:25)
[2020-08-06] MEDS ORDERED: HYDROCODON-ACE1 EA12 PO (14:25)
[2020-08-06] MEDS ORDERED: ONDANSETRON HCL INJ 2MG/ML 2ML 2 MG/ML VIAL IV PRN (14:30)
[2020-08-06] MEDS ORDERED: KCL 20MEQ/.9 SOD CHL 1,000 ML IV SCH (14:30)
[2020-08-06] MEDS ORDERED: DEXTROSE 50% SYRINGE 50 ML IV PRN (14:30)
[2020-08-06] MEDS ORDERED: MORPHINE SULFATE INJ 2 MG/ML SYR IV PRN (14:30)
[2020-08-06] MEDS ORDERED: ENOXAPARIN SOD INJ 60 MG/0.6 ML SYR SC SCH (15:45)
[2020-08-06] MEDS: HYDROMORPHONE 1MG/1ML INJ IV PRN ×2 (16:23→20:26)
[2020-08-06] MEDS ORDERED: NOVOLOG100 UNIT/1 SC (16:25)
[2020-08-06] MEDS ORDERED: LANTUS 3ML100 UNITS/ SQ ×2 (16:25)
[2020-08-06] MEDS ORDERED: PREDNISONE 20 MG TAB PO ONE ×2 (17:00→23:00)
[2020-08-06] MEDS: INSULIN LISPRO 100 UNIT/1 ML 3ML VIAL SQ SCH ×2 (17:15→20:25)
[2020-08-06 17:16] VITALS: BP 143/86
[2020-08-06 20:00] VITALS: BP 153/94
[2020-08-06 21:00] VITALS: BP 153/94
[2020-08-06] MEDS ORDERED: HYDROCODONE/APAP 7.5MG-325MG 1 EA TAB PO PRN (21:45)
[2020-08-06] MEDS ORDERED: CLONIDINE HCL 0.1 MG TAB PO PRN (21:45)
[2020-08-06] MEDS: LISINOPRIL 20 MG TAB PO SCH (22:15)
[2020-08-07] VITALS: BP 157/92
[2020-08-07] MEDS: HYDROMORPHONE 1MG/1ML INJ IV PRN ×2 (00:58→05:12)
[2020-08-07] MEDS ORDERED: IOPAMIDOL 370 MG/ML 200 ML INFUS..BTL INJ ONE ×2 (00:59→04:31)
[2020-08-07] MEDS ORDERED: SODIUM CHLORIDE 0.9% 50ML 0 ML ONE (00:59)
[2020-08-07 04:00] VITALS: BP 157/98
[2020-08-07] MEDS ORDERED: SODIUM CHLORIDE 0.9% 50ML 50 ML ONE (04:31)
[2020-08-07] MEDS ORDERED: DIATRIZOATE MEGL/DIATRIZOA SOD 30 ML BTL PO ONE (04:33)
[2020-08-07] MEDS ORDERED: PREDNISONE 20 MG TAB PO ONE (05:00)
[2020-08-07] MEDS ORDERED: DIPHENHYDRAMINE HCL 25 MG CAP PO ONE (05:00)
[2020-08-07 06:31] LABS: BASOPHILS % 0.2 % (0.0-1.0); HEMATOCRIT 39.7 % (34.2-44.1); HEMOGLOBIN 14.1 g/dL (12.0-16.0); LYMPHOCYTES # (AUTO) 0.9 (1.0-3.2); LYMPHOCYTES % 9.1 % (18.0-39.1); MEAN CORPUSCULAR HEMOGLOBIN 28.8 pg (28-32); MEAN CORPUSCULAR HGB CONC 35.5 g/dL (31-35); MONOCYTES # (AUTO) 0.1 (0.2-0.8); MONOCYTES % 0.7 % (4.4-11.3); NEUTROPHILS # (AUTO) 8.7 (2.1-6.9); NEUTROPHILS % 89.7 % (38.7-80.0); PLATELET COUNT 299 x10e3/uL (140-360); RED CELL DISTRIBUTION WIDTH 12.2 % (11.7-14.4)
[2020-08-07 07:12] LABS: ALANINE AMINOTRANSFERASE 14 IU/L (0-55); ALBUMIN 3.9 g/dL (3.5-5.0); ALKALINE PHOSPHATASE 50 IU/L (40-150); ANION GAP 17.8 mmol/L (8-16); BLOOD UREA NITROGEN 10 mg/dL (7-26); BUN/CREATININE RATIO 13 (6-25); CALCIUM 8.8 mg/dL (8.4-10.2); CARBON DIOXIDE 24 mmol/L (22-29); CHLORIDE 101 mmol/L (98-107); CREATININE, SERUM 0.79 mg/dL (0.57-1.11); EST GLOMERULAR FILTRATION RATE > 60 ML/MIN (60-); POTASSIUM 3.8 mmol/L (3.5-5.1); SODIUM 139 mmol/L (136-145)
[2020-08-07 07:17] LABS: GLUCOSE 408 mg/dL (74-118)
[2020-08-07] MEDS: LISINOPRIL 20 MG TAB PO SCH (07:37)
[2020-08-07 07:50] VITALS: BP 93/59
[2020-08-07 08:01] VITALS: BP 93/59
[2020-08-07] MEDS: INSULIN LISPRO 100 UNIT/1 ML 3ML VIAL SQ SCH ×2 (08:16→12:13)
[2020-08-07] MEDS ORDERED: INSULIN GLARGINE 100 UNITS/ML VIAL SQ SCH (09:00)
[2020-08-07] MEDS ORDERED: GABAPENTIN 300 MG CAP PO SCH (09:00)
[2020-08-07] MEDS ORDERED: SODIUM CHLORIDE 0.9% 500ML 500 ML IV ONE (11:30)
[2020-08-07] MEDS ORDERED: KETOROLAC TROMETHAMINE 30 MG/ML VIAL IV ONE (11:30)
[2020-08-07 11:33] VITALS: BP 114/78
[2020-08-07 15:40] VITALS: BP 117/82
[2020-08-07] MEDS ORDERED: ONDANSETRON HCL 4 MG ORAL DISINTEGRATING TAB PO PRN (15:45)
== END 2020-08-07 15:47 | disposition home or self-care (01) ==
LOC: ER 12:17 → ERHOLD 14:23 → MED/SURG3 14:50
PROVIDERS: ADMIT Internal Medicine; ATTEND Internal Medicine
DX: R10.11 Right upper quadrant pain (principal); E11.65 Type 2 diabetes mellitus with hyperglycemia; R07.81 Pleurodynia; K59.03 Drug induced constipation; T40.2X5A Adverse effect of other opioids, initial encounter; E83.42 Hypomagnesemia; E87.6 Hypokalemia; M32.9 Systemic lupus erythematosus, unspecified; Z20.822 Contact with and (suspected) exposure to COVID-19; Z79.4 Long term (current) use of insulin
CPT/HCPCS: 36415 ×2; 71045; 71260; 74176; 74177; 80053 ×2; 80307; 80329; 81001; 82150; 82550; 82553; 82948 ×2; 83690; 83735 ×2; 83880; 84443; 84484; 85025 ×2; 85610; 85730; 87086; 93005; 93971; 99284; G0378 ×2; J1170 ×2; J1650; J1815; J1885; J2270; J3475; J7040; J7512 ×2; Q9967; U0002; J2405

== ENCOUNTER 2022-01-13 07:42 | Observation (INO) | payer BC ==
[~2022-01-13] VITALS: Ht 157.5 cm; Wt 59.0 kg
[~2022-01-13 07:42] MED LIST changes: +GABAPENTIN300 MG PO; +HYDROCODON-ACE1 EA12 PO; +LANTUS 3ML100 UNITS/ SQ; +LISINOPRIL40 MG PO; +NOVOLOG100 UNIT/1 SC
[2022-01-13] MEDS ORDERED: SODIUM CHLORIDE 0.9% 1000ML 1,000 ML IV STA (08:01)
[2022-01-13 08:49] LABS: BASOPHILS % 0.6 % (0.0-1.0); HEMATOCRIT 43.1 % (34.2-44.1); HEMOGLOBIN 15.1 g/dL (12.0-16.0); LYMPHOCYTES # (AUTO) 1.8 (1.0-3.2); LYMPHOCYTES % 35.8 % (18.0-39.1); MEAN CORPUSCULAR HEMOGLOBIN 28.7 pg (28-32); MEAN CORPUSCULAR VOLUME 81.8 fL (81-99); MONOCYTES # (AUTO) 0.3 (0.2-0.8); MONOCYTES % 6.6 % (4.4-11.3); NEUTROPHILS # (AUTO) 2.9 (2.1-6.9); NEUTROPHILS % 56.8 % (38.7-80.0); PLATELET COUNT 327 x10e3/uL (140-360); RED BLOOD COUNT 5.27 x10e6/uL (3.6-5.1); RED CELL DISTRIBUTION WIDTH 11.9 % (11.7-14.4)
[2022-01-13 09:01] LABS: INR 0.89; PROTHROMBIN TIME 12.9 seconds (11.9-14.5)
[2022-01-13 09:02] LABS: PARTIAL THROMBOPLASTIN TIME 30.6 seconds (23.8-35.5)
[2022-01-13 09:07] LABS: COLOR,URINE YELLOW (YELLOW)
[2022-01-13 09:08] LABS: CLARITY,URINE CLOUDY (CLEAR); KETONES,URINE NEGATIVE (NEGATIVE); LEUKOCYTE ESTERASE ,URINE NEGATIVE (NEGATIVE); NITRITE,URINE NEGATIVE (NEGATIVE); PROTEIN,URINE DIPSTICK NEGATIVE (NEGATIVE); URINE UROBILINOGEN 0.2 mg/dL (0.2 - 1)
[2022-01-13 09:11] LABS: ALANINE AMINOTRANSFERASE 11 IU/L (0-55); ALBUMIN 4.3 g/dL (3.5-5.0); ALKALINE PHOSPHATASE 50 IU/L (40-150); ANION GAP 17.8 mmol/L (8-16); BLOOD UREA NITROGEN 7 mg/dL (7-26); BUN/CREATININE RATIO 8 (6-25); CALCIUM 10.5 mg/dL (8.4-10.2); CARBON DIOXIDE 26 mmol/L (22-29); CHLORIDE 96 mmol/L (98-107); CREATINE KINASE 39 IU/L (29-168); CREATININE, SERUM 0.85 mg/dL (0.57-1.11); GLUCOSE 394 mg/dL (74-118); SODIUM 137 mmol/L (136-145)
[2022-01-13 09:12] LABS: BACTERIA,URINE FEW /HPF; EPITHELIAL CELLS,URINE MODERATE /LPF; RBC,URINE 0-5 /HPF (0-5); TRANSITIONAL EPI CELLS,URINE FEW
[2022-01-13 09:14] LABS: MAGNESIUM 0.9 MG/DL (1.3-2.1); POTASSIUM 2.8 mmol/L (3.5-5.1)
[2022-01-13] MEDS ORDERED: ASPIRIN 81 MG CHEW TAB PO NR (09:15)
[2022-01-13] MEDS ORDERED: KCL 40MEQ/0.9% SOD CHL 1,000 ML IV ONE (09:30)
[2022-01-13] MEDS ORDERED: MAGNESIUM SULFATE 2GM/50ML 50 ML IV ONE ×2 (09:30→15:00)
[2022-01-13] MEDS ORDERED: POTASSIUM CHLORIDE 20 MEQ TAB CR PO NR (09:30)
[2022-01-13] MEDS: HYDROCODONE/APAP 7.5MG-325MG 1 EA TAB PO PRN ×3 (09:59→23:01)
[2022-01-13] MEDS ORDERED: ONDANSETRON HCL INJ 2MG/ML 2ML 2 MG/ML VIAL IV PRN (10:15)
[2022-01-13] MEDS ORDERED: DEXTROSE 50% SYRINGE 50 ML IV PRN (10:15)
[2022-01-13] MEDS: INSULIN LISPRO 100 UNIT/1 ML 3ML VIAL SQ SCH ×3 (12:06→22:11)
[2022-01-13] MEDS ORDERED: KETOROLAC TROMETHAMINE 30 MG/ML VIAL IV ONE (13:30)
[2022-01-13 14:41] VITALS: BP 169/89
[2022-01-13 15:00] VITALS: BP 169/89
[2022-01-13 16:15] LABS: CREATINE KINASE 37 IU/L (29-168)
[2022-01-13] MEDS: ENOXAPARIN SOD INJ 40 MG/0.4 ML SYR SC SCH (16:44)
[2022-01-13 20:00] VITALS: BP 157/87
[2022-01-13 20:35] VITALS: BP 169/89
[2022-01-13] MEDS ORDERED: INSULIN GLARGINE 100 UNITS/ML VIAL SQ SCH (21:00)
[2022-01-13] MEDS ORDERED: LISINOPRIL 20 MG TAB PO SCH (21:00)
[2022-01-13] MEDS ORDERED: ATORVASTATIN 20 MG TAB PO SCH (21:00)
[2022-01-14] VITALS: BP 127/79
[2022-01-14] MEDS: HYDROCODONE/APAP 7.5MG-325MG 1 EA TAB PO PRN ×2 (05:21→11:26)
[2022-01-14 05:37] LABS: BASOPHILS % 0.6 % (0.0-1.0); EOSINOPHILS % 0.3 % (0.0-6.0); HEMATOCRIT 38.5 % (34.2-44.1); LYMPHOCYTES # (AUTO) 2.6 (1.0-3.2); LYMPHOCYTES % 38.4 % (18.0-39.1); MEAN CORPUSCULAR HEMOGLOBIN 28.9 pg (28-32); MEAN CORPUSCULAR HGB CONC 36.4 g/dL (31-35); MEAN CORPUSCULAR VOLUME 79.4 fL (81-99); MONOCYTES # (AUTO) 0.4 (0.2-0.8); MONOCYTES % 6.4 % (4.4-11.3); NEUTROPHILS # (AUTO) 3.7 (2.1-6.9); PLATELET COUNT 302 x10e3/uL (140-360); RED BLOOD COUNT 4.85 x10e6/uL (3.6-5.1)
[2022-01-14 05:48] VITALS: BP 130/87
[2022-01-14 06:13] LABS: ALBUMIN 3.8 g/dL (3.5-5.0); ALBUMIN/GLOBULIN RATIO 1.1 (0.8-2.0); ANION GAP 16.1 mmol/L (8-16); CALCIUM 8.8 mg/dL (8.4-10.2); CHOL/HDL RATIO 5.5 (3.0-3.6); CREATININE, SERUM 0.72 mg/dL (0.57-1.11); MAGNESIUM 1.9 MG/DL (1.3-2.1); POTASSIUM 3.1 mmol/L (3.5-5.1)
[2022-01-14 06:20] LABS: CREATINE KINASE MB 0.7 ng/mL (0-5.0)
[2022-01-14 08:25] VITALS: BP 130/87
[2022-01-14 08:28] VITALS: BP 97/61
[2022-01-14] MEDS ORDERED: ASPIRIN 81 MG ENTERIC COATED PO SCH (09:00)
[2022-01-14] MEDS ORDERED: INSULIN GLARGINE 100 UNITS/ML VIAL SQ SCH (09:00)
[2022-01-14] MEDS: INSULIN LISPRO 100 UNIT/1 ML 3ML VIAL SQ SCH ×3 (09:22→16:40)
[2022-01-14] MEDS ORDERED: POTASSIUM CHLORIDE 10MEQ EA PO ONE (11:00)
[2022-01-14] MEDS: GABAPENTIN 300 MG CAP PO SCH ×2 (11:25→16:41)
[2022-01-14 11:42] VITALS: BP 106/78
[2022-01-14] MEDS ORDERED: ONDANSETRON HCL 4 MG ORAL DISINTEGRATING TAB PO PRN (11:45)
[2022-01-14] MEDS ORDERED: KETOROLAC TROMETHAMINE 30 MG/ML VIAL IV ONE (12:30)
[2022-01-14 14:15] LABS: CREATINE KINASE MB 0.6 ng/mL (0-5.0)
[2022-01-14 16:12] VITALS: BP 113/84
[2022-01-14] MEDS: ENOXAPARIN SOD INJ 40 MG/0.4 ML SYR SC SCH (16:42)
== END 2022-01-14 17:38 | disposition home or self-care (01) ==
LOC: ER 07:55 → ERHOLD 10:20 → INTOOBSV 10:20 → MED/SURG2 14:25
PROVIDERS: ADMIT Internal Medicine; ATTEND Internal Medicine
DX: R20.2 Paresthesia of skin (principal); E83.42 Hypomagnesemia; E87.6 Hypokalemia; G89.29 Other chronic pain; I10 Essential (primary) hypertension; E11.9 Type 2 diabetes mellitus without complications; Z87.442 Personal history of urinary calculi; Z91.041 Radiographic dye allergy status; Z91.040 Latex allergy status; Z91.013 Allergy to seafood; Z20.822 Contact with and (suspected) exposure to COVID-19; M32.9 Systemic lupus erythematosus, unspecified; M25.511 Pain in right shoulder; R53.1 Weakness; Z79.4 Long term (current) use of insulin
CPT/HCPCS: 0223U; 36415 ×2; 70450; 70551; 71045; 73030 ×2; 80053 ×2; 80061; 81001; 82550 ×2; 82553 ×2; 82607; 82746; 82948 ×2; 83036; 83735 ×2; 84252; 84443; 84484 ×2; 85025 ×2; 85610; 85730; 93005; 94799 ×2; 96372; 99284; G0378 ×2; J1650; J1815; J1885 ×2; J3475; J7030